=== PATIENT | male | born 1980 | race Hispanic/Latino ===

== ENCOUNTER 2016-08-12 02:49 | Emergency (ER) | payer BC ==
[2016-08-12 03:20] LABS: #Basophils 0.1 thou/uL (0.0-0.2); #Eosinphils 0.1 thou/uL (0.0-0.7); #Monocytes 0.5 thou/uL (0.11-0.59); #Neutrophils 6.1 thou/uL (1.40-6.50); %Basophils 0.8 % (0.0-1.0); %Eosinophils 0.8 % (0.0-10.0); %Lymphocytes 22.8 % (21.0-51.0); Hematocrit 45.5 % (42.0-52.0); Mean Platelet Volume 8.5 fL (7.4-10.4); Red Blood Cell (RBC) Count 5.25 mill/uL (4.70-6.10); White Blood Cell (WBC) Count 8.8 thou/uL (4.8-10.8)
[2016-08-12] MEDS ORDERED: Lidocaine Viscous Sol 2% 15 ml UD Cup ONE (03:26)
[2016-08-12] MEDS ORDERED: Mag-Al Plus 1200 MG/1200 MG/120 MG/30 ML UDCUP ONE (03:26)
[2016-08-12 03:36] LABS: ALT (SGPT) 79 U/L (0-55); AST (SGOT) 136 U/L (5-34); Alkaline Phosphatase 105 U/L (40-150); Anion Gap 16 mmol/L (10-20); BUN (Urea Nitrogen) 17 mg/dL (8.9-20.6); Bilirubin, Total 1.5 mg/dL (0.2-1.2); CK (CPK) 65 U/L (30-200); Calc. Creatinine Clearance 0 mL/min (70-130); Calcium 8.9 mg/dL (7.8-10.44); Carbon Dioxide 22 mmol/L (22-29); Chloride 106 mmol/L (98-107); Estimated GFR-MDRD 83; Globulin 3.4 g/dL (2.4-3.5); Lipase 38 U/L (8-78); Protein, Total 7.4 g/dL (6.0-8.3); Troponin I Less than 0.010 ng/mL (< 0.028)
--- NOTE | 2016-08-12 04:12 | ERRECORD ---
[facility] EMERGENCY RECORD HPI CHEST PAIN (03:05 JL) CHIEF COMPLAINT: Patient presents for evaluation of Pt with 3 hours of left lower chest/ LUQ abd pain. Constant. Dull. Similar to previous GERD. Took pantoprozole 2 hours ago. HISTORIAN: History provided by patient. LOCATION: Symptoms are localized, most severe in the left lower chest. QUALITY: Pain is dull in nature. TIME COURSE: Symptoms are worsening, are constant. ASSOCIATED WITH: No associated chills, No associated cough, No associated diaphoresis, No associated fever, No associated nausea, No associated palpitations, No associated shortness of breath, No associated trauma, No associated upper respiratory infection, No associated vomiting. EXACERBATED BY: Patient's condition exacerbated by nothing. RELIEVED BY: Patient's condition relieved by nothing. ROS (03:07 JL) CONSTITUTIONAL: Historian denies chills, denies fever. EYES: Historian denies eye pain, denies eye redness, denies eye discharge. ENT: Historian denies rhinorrhea, denies sore throat. CARDIOVASCULAR: Historian reports chest pain, denies dyspnea on exertion, denies palpitations. RESPIRATORY: Historian denies cough, denies shortness of breath, denies sputum. GI: Historian denies abdominal pain, denies constipation, denies diarrhea, denies nausea, denies vomiting. GENITOURINARY MALE: Historian denies dysuria, denies hematuria. MUSCULOSKELETAL: Historian denies arthralgias, denies back pain, denies myalgias. SKIN: Historian denies rash, denies skin changes. NEUROLOGIC: Historian denies dizziness, denies headache, denies paresthesias. PAST MEDICAL HISTORY MEDICAL HISTORY: Notes: ELEVATED LIVER ENZYMES, Flu vaccine not up to date, Tetanus not up to date, Pneumococcal vaccine not up to date, Past medical history includes gastrointestinal disease, gastroesophageal reflux disease. (03:37 [facility]) MALE SURGICAL HISTORY: right ankle surgery. (03:37 [facility]) PSYCHIATRIC HISTORY: No previous psychiatric history. (03:37 [facility]) SOCIAL HISTORY: Patient drinks socially, once a month, Patient denies drug use, Patient is a former tobacco user, smoked cigarettes, Tobacco history notes: QUIT 2 YEARS AGO, Lives at home, with family. (03:37 [facility]) &a-1R&a+25V*p+0X*i7244H*c202B*c15G*c2P*p-0X&a-25V&a+1R Name: Thomas South : 1980 M36 MedRec: [id number] AcctNum: [id number] Prepared: Autumn Aug 12, 2016 04:51 by Interface Page 1 of 3 pMD [facility] EMERGENCY RECORD NOTES: Nursing records reviewed, Agree with nursing records. (03:09 [facility]) KNOWN ALLERGIES No Known Allergies CURRENT MEDICATIONS (03:25 [facility]) Protonix: TABLET, DELAYED RELEASE (ENTERIC COATED) : Strength - 40 mg : ORAL Patient Dose: 40 mg Oral As Needed. VITAL SIGNS (02:56 [facility]) VITAL SIGNS: BP: 132/76, Pulse: 82, Resp: 16, O2 sat: 100 on Room Air, Time: 08/12/2016 02:56. PHYSICAL EXAM (03:08 [facility]) CONSTITUTIONAL: Vital Signs Reviewed, Patient appears non toxic, Patient alert and oriented to person, place and time. EYES: Eye exam included findings of eyelids normal to inspection, Pupils equally round and reactive to light, Conjunctiva normal. ENT: Pharynx exam normal, Uvula exam normal, Tonsil exam normal, Mouth exam normal, mucous membranes moist. NECK: Neck exam included findings of normal range of motion, Trachea midline, no cervical adenopathy. RESPIRATORY CHEST: Respiratory exam included findings of no respiratory distress, Breath sounds clear, No wheezing, No rales, No rhonchi, Chest exam included findings of chest movement symmetrical. CARDIOVASCULAR: Heart rate regular rate and rhythm, Heart sounds normal. ABDOMEN MALE: Abdominal exam included findings of abdomen tender, minimal LUQ soreness to deep palpation, Bowel sounds normal, Liver normal, Spleen normal, no peritoneal signs, no rigidity, no guarding, no rebound. BACK: Back exam included findings of normal inspection, range of motion normal, no tenderness. UPPER EXTREMITY: Upper extremity exam included findings of inspection normal, Radial pulse normal, no cyanosis, no clubbing, no edema. LOWER EXTREMITY: Lower extremity exam included findings of inspection normal, no edema, no calf tenderness. NEURO: Don coma scale 15, Neuro exam findings include patient oriented to person, place and time, Speech normal. SKIN: Skin exam included findings of skin warm, dry, and normal in color, no rash. PSYCHIATRIC: Normal affect. MEDICATION ADMINISTRATION SUMMARY Drug Name: GI COCKTAIL - WHITE, Dose Ordered: 40 mL, Route: Oral, Status: Given, Time: 03:29 08/12/2016, Detailed record available in &a-1R&a+25V*p+0X*s2408S*c202B*c15G*c2P*p-0X&a-25V&a+1R Name: Thomas South : 1980 [facility] [place] MedRec: [id number] AcctNum: [id number] Prepared: Autumn Aug 12, 2016 04:51 by Interface Page 2 of 3 pMD [facility] EMERGENCY RECORD Medication Service section. DOCTOR NOTES (04:03 SARA) RE-EVALUATION: The patient's condition has improved, Pain improved with the GI coctail. TEXT: All lab and exam normal. No risk factors for ACS. Likely related to previously diagnosed GERD. Will treat with PPIs which the patient already has at home. PROBLEM LIST No recorded problems DIAGNOSIS (04:05 SARA) FINAL: PRIMARY: Chest Pain, unspecified. PRESCRIPTION No recorded prescriptions DISPOSITION PATIENT: Disposition Type: Discharge, Disposition: *Discharge Home. (04:05 SARA) Patient left the department. (04:48 TAVIA) Peterson: SARA=MD José Miguel, Grant SQUIRES=OLIVA Dick, Arleen &a-1R&a+25V*p+0X*[id number]*c202B*c15G*c2P*p-0X&a-25V&a+1R Name: Thomas South : 1980 6 MedRec: [id number] AcctNum: [id number] Prepared: Autumn Aug 12, 2016 04:51 by Interface Page 3 of 3 pMD MTDD
--- NOTE | 2016-08-12 04:17 | PICIS ---
[facility] EMERGENCY RECORD TRIAGE (SatAug 12, 2016 02:58 [facility]) TRIAGE NOTES: SUDDEN ONSET OF LEFT SIDED CP SINCE MIDNIGHT WITH NO RELIEF. (SatAug 12, 2016 02:58 [facility]) PATIENT: NAME: Thomas South, AGE: 36, GENDER: male, : [facility] 1980, TIME OF GREET: SatAug 12, 2016 02:50, PREFERRED LANGUAGE: Lithuanian, ETHNICITY: or , ECODE BILLING MAP: [facility] ER, SSN: [id number], Zip Code: [address], PHONE: , , , PERSON ID: [id number], PCP: MD AGUIRRE THOMAS. (SatAug 12, 2016 02:58 [facility]) KG WEIGHT: 108.9 (est.). (04:48 [facility]) COMPLAINT: HIGH RISK COMPLAINT: CHEST PAIN. (SatAug 12, 2016 02:58 [facility]) ADMISSION: URGENCY: 2 Emergent, ADMISSION SOURCE: Home, TRANSPORT: CAR, BED: ER -03. (SatAug 12, 2016 02:58 [facility]) PAIN: Patient complains of pain described as, pressure, on a scale 0-10 patient rates pain as 5, Location LEFT CHEST, Pain is constant, Onset was 08/12/2016 00:00. (03:37 [facility]) IMMUNIZATIONS: Flu vaccine not up to date, Tetanus not up to date, Pneumococcal vaccine not up to date. (03:37 [facility]) SIRS SCORING: Heart Rate 55-109 (0), Temp range 96.8-101.1 (0), respiratory rate 12-24 (0), Mental Status altered: no (0). (03:37 [facility]) TRIAGE SCREENING: Patient denies suicidal ideation, Patient denies presence of domestic violence. (03:37 [facility]) TREATMENTS IN PROGRESS: Treatments given Prehospital: PEPTO @ 00:00; PROTONIX @ 01:30. (03:37 [facility]) PROVIDERS: TRIAGE NURSE: Arleen Dick RN. (SatAug 12, 2016 02:58 [facility]) VITAL SIGNS: BP 132/76, Pulse 82, Resp 16, O2 Sat 100, on Room Air, Time 08/12/2016 02:56. (02:56 [facility]) PREVIOUS VISIT ALLERGIES: No Known Allergies. (SatAug 12, 2016 02:58 [facility]) No Known Allergies. (03:37 [facility]) KNOWN ALLERGIES No Known Allergies CURRENT MEDICATIONS (03:25 [facility]) Protonix: TABLET, DELAYED RELEASE (ENTERIC COATED) : Strength - 40 mg : ORAL Patient Dose: 40 mg Oral As Needed. VITAL SIGNS (02:56 [facility]) VITAL SIGNS: BP: 132/76, Pulse: 82, Resp: 16, O2 sat: 100 on Room Air, Time: 08/12/2016 02:56. ORDER DETAILS &a-1R&a+25V*p+0X*m8183A*c202B*c15G*c2P*p-0X&a-25V&a+1R Name: Thomas South : 1980 M36 MedRec: [id number] AcctNum: [id number] Prepared: SatAug 12, 2016 04:57 by Interface Page 1 of 7 [facility] EMERGENCY RECORD Order Name: FLOORLEADER ED, Status: Done, Time: 03:09 08/12/2016, User: TAVIA, - Ordered for: MD Valdez Joshua, - Entered by: MD Valdez Joshua - Autumn Aug 12, 2016 03:05, - Quantity: 1, Order Name: Cardiac Profile w/CKMB & Troponin - I, Status: Active, Time: 03:05 08/12/2016, User: SARA, - Ordered for: MD Valdez Joshua, - Entered by: MD Valdez Joshua - Autumn Aug 12, 2016 03:05, - Quantity: 1, Order Name: CBC with Differential, Status: Active, Time: 03:05 08/12/2016, User: SARA, - Ordered for: MD Valdez Joshua, - Entered by: MD Valdez Joshua - Autumn Aug 12, 2016 03:05, - Quantity: 1, Order Name: CK (CPK), Status: Active, Time: 03:05 08/12/2016, User: SARA, - Ordered for: MD Valdez Joshua, - Entered by: MD Valdez Joshua - Sun Aug 12, 2016 03:05, - Quantity: 1, Order Name: Comprehensive Metabolic Panel, Status: Active, Time: 03:05 08/12/2016, User: SARA, - Ordered for: MD Valdez Joshua, - Entered by: MD Valdez Joshua - Sun Aug 12, 2016 03:05, - Quantity: 1, Order Name: EKG 12 Lead in Emergency Room, Status: Active, Time: 03:05 08/12/2016, User: SARA, - Ordered for: MD Valdez Joshua, - Entered by: MD Valdez Joshua - Sun Aug 12, 2016 03:05, - Quantity: 1, Order Name: Lipase, Status: Active, Time: 03:05 08/12/2016, User: SARA, - Ordered for: MD Valdez Joshua, - Entered by: MD Valdez Joshua - Sun Aug 12, 2016 03:05, - Quantity: 1, Order Name: SALINE LOCK, Status: Done, Time: 03:09 08/12/2016, User: LUIS, - Ordered for: MD Valdez Joshua, - Entered by: MD Valdez Joshua - Sun Aug 12, 2016 03:05, - Quantity: 1, Order Name: XR Chest 1 View Portable, Status: Active, Time: 03:05 08/12/2016, User: SARA, - Ordered for: MD Valdez Joshua, - Entered by: MD Valdez Joshua - Sun Aug 12, 2016 03:05, - Quantity: 1. MEDICATION ADMINISTRATION SUMMARY Drug Name: GI COCKTAIL - WHITE, Dose Ordered: 40 mL, Route: Oral, Status: Given, Time: 03:29 08/12/2016, Detailed record available in &a-1R&a+25V*p+0X*r7439T*c202B*c15G*c2P*p-0X&a-25V&a+1R Name: Thomas South : 1980 M36 MedRec: [id number] AcctNum: [id number] Prepared: SatAug 12, 2016 04:57 by Interface Page 2 of 7 pMD [facility] EMERGENCY RECORD Medication Service section. MEDICATION SERVICE (03:29 [facility]) GI COCKTAIL - WHITE: Order: GI COCKTAIL - WHITE - Dose: 40 mL : Oral Lidocaine Viscous (lidocaine HCl) [10 mL] MAG-AL (magnesium hydroxide/aluminum hydroxide) [30 mL] Ordered by: Grant Valdez MD Entered by: MD Autumn Rocha Aug 12, 2016 03:05 Documented as given by: Arleen Dick RN [place] Aug 12, 2016 03:29 Patient, Medication, Dose, Route and Time verified prior to administration. Amount given: 40mL, Site: Medication administered P.O., Patient appears Awake and alert- acceptable, Correct patient, time, route, dose and medication confirmed prior to administration, Patient advised of actions and side-effects prior to administration, Allergies confirmed and medications reviewed prior to administration. HPI CHEST PAIN (03:05 [facility]) CHIEF COMPLAINT: Patient presents for evaluation of Pt with 3 hours of left lower chest/ LUQ abd pain. Constant. Dull. Similar to previous GERD. Took pantoprozole 2 hours ago. HISTORIAN: History provided by patient. LOCATION: Symptoms are localized, most severe in the left lower chest. QUALITY: Pain is dull in nature. TIME COURSE: Symptoms are worsening, are constant. ASSOCIATED WITH: No associated chills, No associated cough, No associated diaphoresis, No associated fever, No associated nausea, No associated palpitations, No associated shortness of breath, No associated trauma, No associated upper respiratory infection, No associated vomiting. EXACERBATED BY: Patient's condition exacerbated by nothing. RELIEVED BY: Patient's condition relieved by nothing. ROS (03:07 [facility]) CONSTITUTIONAL: Historian denies chills, denies fever. EYES: Historian denies eye pain, denies eye redness, denies eye discharge. ENT: Historian denies rhinorrhea, denies sore throat. CARDIOVASCULAR: Historian reports chest pain, denies dyspnea on exertion, denies palpitations. RESPIRATORY: Historian denies cough, denies shortness of breath, denies sputum. GI: Historian denies abdominal pain, denies constipation, denies diarrhea, denies nausea, denies vomiting. GENITOURINARY MALE: Historian denies dysuria, denies hematuria. MUSCULOSKELETAL: Historian denies arthralgias, denies back pain, denies myalgias. &a-1R&a+25V*p+0X*b3091F*c202B*c15G*c2P*p-0X&a-25V&a+1R Name: Thomas South : 1980 M36 MedRec: [id number] AcctNum: [id number] Prepared: Autumn Aug 12, 2016 04:57 by Interface Page 3 of 7 pMD [facility] EMERGENCY RECORD SKIN: Historian denies rash, denies skin changes. NEUROLOGIC: Historian denies dizziness, denies headache, denies paresthesias. PAST MEDICAL HISTORY MEDICAL HISTORY: Notes: ELEVATED LIVER ENZYMES, Flu vaccine not up to date, Tetanus not up to date, Pneumococcal vaccine not up to date, Past medical history includes gastrointestinal disease, gastroesophageal reflux disease. (03:37 [facility]) MALE SURGICAL HISTORY: right ankle surgery. (03:37 [facility]) PSYCHIATRIC HISTORY: No previous psychiatric history. (03:37 [facility]) SOCIAL HISTORY: Patient drinks socially, once a month, Patient denies drug use, Patient is a former tobacco user, smoked cigarettes, Tobacco history notes: QUIT 2 YEARS AGO, Lives at home, with family. (03:37 [facility]) NOTES: Nursing records reviewed, Agree with nursing records. (03:09 [facility]) PHYSICAL EXAM (03:08 [facility]) CONSTITUTIONAL: Vital Signs Reviewed, Patient appears non toxic, Patient alert and oriented to person, place and time. EYES: Eye exam included findings of eyelids normal to inspection, Pupils equally round and reactive to light, Conjunctiva normal. ENT: Pharynx exam normal, Uvula exam normal, Tonsil exam normal, Mouth exam normal, mucous membranes moist. NECK: Neck exam included findings of normal range of motion, Trachea midline, no cervical adenopathy. RESPIRATORY CHEST: Respiratory exam included findings of no respiratory distress, Breath sounds clear, No wheezing, No rales, No rhonchi, Chest exam included findings of chest movement symmetrical. CARDIOVASCULAR: Heart rate regular rate and rhythm, Heart sounds normal. ABDOMEN MALE: Abdominal exam included findings of abdomen tender, minimal LUQ soreness to deep palpation, Bowel sounds normal, Liver normal, Spleen normal, no peritoneal signs, no rigidity, no guarding, no rebound. BACK: Back exam included findings of normal inspection, range of motion normal, no tenderness. UPPER EXTREMITY: Upper extremity exam included findings of inspection normal, Radial pulse normal, no cyanosis, no clubbing, no edema. LOWER EXTREMITY: Lower extremity exam included findings of inspection normal, no edema, no calf tenderness. NEURO: Don coma scale 15, Neuro exam findings include patient oriented to person, place and time, Speech normal. SKIN: Skin exam included findings of skin warm, dry, and normal in color, no rash. &a-1R&a+25V*p+0X*z5538L*c202B*c15G*c2P*p-0X&a-25V&a+1R Name: Thomas South : 1980 M36 MedRec: [id number] AcctNum: [id number] Prepared: Autumn Aug 12, 2016 04:57 by Interface Page 4 of 7 pMD [facility] EMERGENCY RECORD PSYCHIATRIC: Normal affect. EVENTS TRANSFER: Triage to Emergency Emergency Room -03. (Autumn Aug 12, 2016 02:58 [facility]) Removed from Emergency Emergency Room -03. (04:48 [facility]) DOCTOR NOTES (04:03 [facility]) RE-EVALUATION: The patient's condition has improved, Pain improved with the GI coctail. TEXT: All lab and exam normal. No risk factors for ACS. Likely related to previously diagnosed GERD. Will treat with PPIs which the patient already has at home. PROBLEM LIST No recorded problems DIAGNOSIS (04:05 [facility]) FINAL: PRIMARY: Chest Pain, unspecified. DISPOSITION PATIENT: Disposition Type: Discharge, Disposition: *Discharge Home. (04:05 [facility]) Patient left the department. (04:48 [facility]) INSTRUCTION (04:05 [facility]) DISCHARGE: GASTRITIS VS. ULCER. FOLLOWUP: MD CARLA, [facility], [address] [facility], [place] [address], [phone], Follow up with Primary Care Physician in 3-4 days. PRESCRIPTION No recorded prescriptions ADMIN (04:05 [facility]) DIGITAL SIGNATURE: MD José Miguel, Grant. RESULTS (03:46 [facility]) LABORATORY: Cardiac Profile w/CKMB & TropI Collection DT: Autumn Aug 12, 2016 03:18, CKMB 0.5 ng/mL, Range (0-6.6), Troponin I Less than 0.010 ng/mL, Range (< 0.028), Reference Range , 0.00 - 0.028 ng/mL Negative 0.029 - 0.29 ng/mL , Indeterminate Greater or Equal to 0.3 ng/mL Strongly suggests [place] , . Lipase Collection DT: SatAug 12, 2016 03:18, Lipase 38 U/L, Range (8-78). &a-1R&a+25V*p+0X*b6216D*c202B*c15G*c2P*p-0X&a-25V&a+1R Name: Thomas South : 1980 M36 MedRec: [id number] AcctNum: [id number] Prepared: SatAug 12, 2016 04:57 by Interface Page 5 of 7 [facility] EMERGENCY RECORD CK (CPK) Collection DT: SatAug 12, 2016 03:18, CK (CPK) 65 U/L, Range (30-200). Comprehensive Metabolic Panel Collection DT: SatAug 12, 2016 03:18, Sodium 140 mmol/L, Range (136-145), Potassium 3.6 mmol/L, Range (3.5-5.1), Chloride 106 mmol/L, Range (98-107), Carbon Dioxide 22 mmol/L, Range (22-29), Anion Gap 16 mmol/L, Range (10-20), BUN (Urea Nitrogen) 17 mg/dL, Range (8.9-20.6), Creatinine 1.01 mg/dL, Range (0.7-1.3), Estimated GFR-MDRD 83 , Reference Range for Estimated GFR: Greater than 90, mL/min/1.73 m2 NOTE: The MDRD equation has not been validated for use, with the elderly (over 70 years of age), women, patients with, serious comorbid condition or persons with extremes of body size, muscle, mass, or nutritional status. , *Glucose 117 - H mg/dL, Range (70-105), Calcium 8.9 mg/dL, Range (7.8-10.44), *Bilirubin, Total 1.5 - H mg/dL, Range (0.2-1.2), Protein, Total 7.4 g/dL, Range (6.0-8.3), NOTE: Plasma values are generally 0.3 to 0.5 g/dL higher than serum values, due to the presence of fibrinogen. , Albumin 4.0 g/dL, Range (3.5-5.0), Globulin 3.4 g/dL, Range (2.4-3.5), Alb/Glob Ratio 1.2 g/dL, Range (1.2-2.2), Alkaline Phosphatase 105 U/L, Range (40-150), *AST (SGOT) 136 - H U/L, Range (5-34), *ALT (SGPT) 79 - H U/L, Range (0-55). CBC with Differential Collection DT: Autumn Aug 12, 2016 03:18, White Blood Cell (WBC) Count 8.8 thou/uL, Range (4.8-10.8), Red Blood Cell (RBC) Count 5.25 mill/uL, Range (4.70-6.10), Hemoglobin 15.2 g/dL, Range (14.0-18.0), Hematocrit 45.5 %, Range (42.0-52.0), Mean Corpuscular Volume 86.6 fl, Range (80.0-94.0), Mean Corpuscular Hemoglobin 28.9 pg, Range (27.0-31.0), Mean Corpuscular HGB CONC 33.4 g/dL, Range (32.0-36.0), RBC Distribution Width 11.7 %, Range (11.5-14.5), Platelet Count 179 thou/uL, Range (130-400), Mean Platelet Volume 8.5 fL, Range (7.4-10.4), %Neutrophils 69.6 %, Range (42.0-75.0), %Lymphocytes 22.8 %, Range (21.0-51.0), %Monocytes 6.0 %, Range (0.0-10.0), %Eosinophils 0.8 %, Range (0.0-10.0), %Basophils 0.8 %, Range (0.0-1.0), #Neutrophils 6.1 thou/uL, Range (1.40-6.50), #Lymphocytes 2.0 thou/uL, Range (1.20-3.40), #Monocytes 0.5 thou/uL, Range (0.11-0.59), #Eosinphils 0.1 thou/uL, Range (0.0-0.7), &a-1R&a+25V*p+0X*n1097I*c202B*c15G*c2P*p-0X&a-25V&a+1R Name: Thomas South : 1980 6 MedRec: [id number] AcctNum: [id number] Prepared: SatAug 12, 2016 04:57 by Interface Page 6 of 7 D [facility] EMERGENCY RECORD #Basophils 0.1 thou/uL, Range (0.0-0.2). Peterson: SARA=MD José Miguel, Grant SQUIRES=OLIVA Dick, Arleen &a-1R&a+25V*p+0X*j9298K*c202B*c15G*c2P*p-0X&a-25V&a+1R Name: Thomas South : 1980 6 MedRec: [id number] AcctNum: [id number] Prepared: SatAug 12, 2016 04:57 by Interface Page 7 of 7 D [facility] MEDICATION RECONCILIATION You were seen in the Emergency Department on: SatAug 12, 2016 KNOWN ALLERGIES No Known Allergies MEDICATIONS GIVEN WHILE IN THE EMERGENCY DEPARTMENT GI COCKTAIL - WHITE - Dose: 40 milliliter(s) : Oral HOME MEDICATIONS CONTINUE PRESCRIBED Protonix : TABLET, DELAYED RELEASE (ENTERIC COATED) : Strength - 40 mg : ORAL Continue as prescribed Patient had been takin mg Oral As Needed. &a-1R&a+25V*p+0X*n6467B*c202B*c15G*c2P*p-0X&a-25V&a+1R Name: Brannon Thomas E : 1980 M36 MedRec: [id number] AcctNum: [id number] Prepared: Autumn Aug 12, 2016 04:57 by Interface Edyta AGUILA
--- NOTE | 2016-08-12 08:30 | RAD ---
SINGLE VIEW OF THE CHEST: COMPARISON: 11/29/15. HISTORY: Sudden onset of left-sided chest pain. FINDINGS: Single view of the chest shows a normal sized cardiomediastinal silhouette. There is no evidence of consolidation, mass, or pleural effusion. The bones are unremarkable. IMPRESSION: No evidence of acute cardiopulmonary disease. POS: [facility]
== END 2016-08-12 04:15 | disposition home or self-care (01) ==
LOC: NAV ERS 02:49
DX: R07.9 Chest pain, unspecified (principal); K21.9 Gastro-esophageal reflux disease without esophagitis; Z87.891 Personal history of nicotine dependence
CPT/HCPCS: 36415; 71010; 80053; 82553; 83690; 84484; 85025; 93005